=== PATIENT | male | born 1975 | race Asian ===

== ENCOUNTER → 2024-11-11 06:34 | Outpatient (REF) | payer BC, SELFPAY | LOC: MRI 3T 06:34 | PROVIDERS: ATTENDING PHYSICIAN Family Medicine | DX: G57.92 Unspecified mononeuropathy of left lower limb (principal); M54.50 Low back pain, unspecified | CPT/HCPCS: 72148 ==

== ENCOUNTER → 2025-01-07 13:00 | Outpatient (REF) | payer BC, SELFPAY | LOC: EMG 13:00 | PROVIDERS: ATTENDING PHYSICIAN Family Medicine | DX: G58.8 Other specified mononeuropathies (principal); R20.0 Anesthesia of skin | CPT/HCPCS: 95886; 95909 ==